=== PATIENT | female | born 1985 | race Caucasian/White ===

== ENCOUNTER 2017-05-04 18:09 | Observation (INO) | payer MEDICAID ==
[~2017-05-04] VITALS: Ht 162.6 cm; Wt 70.3 kg
[2017-05-04] MEDS ORDERED: DEXTROSE 5%-LACTATED RINGERS 1,000 ML IV SCH (18:30)
[2017-05-04 18:52] LABS: APPEARANCE,URINE Clear (CLEAR); BILIRUBIN,URINE Negative (NEGATIVE); COLOR,URINE Yellow (YELLOW); GLUCOSE, URINE (UA) Negative (NEGATIVE); KETONES,URINE >=160 mg/dL (NEGATIVE); LEUKOCYTE ESTERASE ,URINE Trace (NEGATIVE); NITRATE,URINE Negative (NEGATIVE); OCCULT BLOOD,URINE Negative (NEGATIVE); PROTEIN,URINE Negative (NEGATIVE)
[2017-05-04 19:11] LABS: BACTERIA,URINE Rare /HPF (None Seen); RBC,URINE None Seen /HPF (0-1); SQUAMOUS EPITHELIAL CELL,UR 0-2 /LPF (0-2); WBC,URINE None Seen /HPF (0-1)
[2017-05-04] MEDS ORDERED: CEFTRIAXONE 1GM/D5W 50ML 50 ML IV STA (19:27)
[2017-05-04] MEDS ORDERED: CEFTRIAXONE SODIUM 1 GM IVP SCH (20:00)
== END 2017-05-04 23:25 | disposition home or self-care (01) ==
LOC: LDH 18:09
DX: O21.2 Late vomiting of pregnancy (principal); Z87.891 Personal history of nicotine dependence; Z3A.30 30 weeks gestation of pregnancy
CPT/HCPCS: 81001; 96361 ×2; 96374; G0378 ×6; J0696; 96360

== ENCOUNTER 2017-06-28 22:45 | Inpatient (IN) | payer MEDICAID ==
[~2017-06-28] VITALS: Ht 162.6 cm; Wt 74.4 kg
[2017-06-28] MEDS ORDERED: PREN-196 PO (22:58)
[2017-06-28 23:18] LABS: APPEARANCE,URINE Clear (CLEAR); BILIRUBIN,URINE Negative (NEGATIVE); COLOR,URINE Yellow (YELLOW); GLUCOSE, URINE (UA) Negative (NEGATIVE); KETONES,URINE Negative (NEGATIVE); LEUKOCYTE ESTERASE ,URINE Negative (NEGATIVE); NITRATE,URINE Negative (NEGATIVE); OCCULT BLOOD,URINE Negative (NEGATIVE); PH,URINE 7.5 (5.0-8.0); PROTEIN,URINE Negative (NEGATIVE)
[2017-06-28] MEDS ORDERED: EPHEDRINE SULFATE 50 MG/ML AMPULE IVP PRN (23:45)
[2017-06-28] MEDS ORDERED: NALOXONE HCL 0.4 MG/1 ML ML IV PRN (23:45)
[2017-06-28] MEDS ORDERED: LACTATED RINGERS 500 ML 500 ML IV PRN (23:45)
[2017-06-28] MEDS ORDERED: ROPIVACAINE 0.2%200ML EPIDURAL 200 ML EP SCH (23:45)
[2017-06-28 23:47] LABS: AMPHET/METH SCREEN,URINE NEGATIVE (NEGATIVE); BARBITURATE SCREEN, URINE NEGATIVE (NEGATIVE); BENZODIAZEPINES SCREEN,URINE NEGATIVE (NEGATIVE); CANNABINOID SCREEN,URINE POSITIVE (NEGATIVE); COCAINE SCREEN,URINE NEGATIVE (NEGATIVE); OPIATE SCREEN,URINE NEGATIVE (NEGATIVE); PHENCYCLIDINE SCREEN,URINE NEGATIVE (NEGATIVE)
[2017-06-29 00:10] LABS: HEMATOCRIT 30.1 % (36-48); MEAN CORPUSCULAR HEMOGLOBIN 29.9 pg (27.0-33.0); MEAN CORPUSCULAR HGB CONC 34.8 g/dL (32.0-36.0); PLATELET COUNT (AUTO) 208 K/uL (130-400); RED CELL DISTRIBUTION WIDTH 13.8 % (11.0-15.5); WHITE BLOOD COUNT (AUTO) 10.6 K/uL (4.8-10.8)
[2017-06-29] MEDS: LACTATED RINGERS 1000ML 1,000 ML IV PRN ×3 (00:23→01:45)
[2017-06-29] MEDS ORDERED: ROPIVACAINE 0.2%200ML EPIDURAL 200 ML EP SCH (06:30)
[2017-06-29] MEDS ORDERED: EPHEDRINE SULFATE 50 MG/ML AMPULE IVP PRN (06:30)
[2017-06-29] MEDS ORDERED: NALOXONE HCL 0.4 MG/1 ML ML IVP PRN ×2 (06:30)
[2017-06-29] MEDS ORDERED: ONDANSETRON HCL 4 MG/2 ML 8 MG in SODIUM CHLORIDE 0.9% 50 ML IVP NR (06:30)
[2017-06-29] MEDS ORDERED: HYDROCODONE/ACETAMINOPHEN 5/325 MG TAB PO PRN ×2 (06:30)
[2017-06-29] MEDS ORDERED: MORPHINE SULFATE 2 MG/ML 1ML SYG IVP PRN (06:30)
[2017-06-29] MEDS ORDERED: ONDANSETRON HCL 4 MG/2 ML VIAL IVP PRN ×2 (06:30)
[2017-06-29] MEDS ORDERED: PROMETHAZINE HCL 25 MG/ML 1ML AMPULE IM PRN (06:30)
[2017-06-29] MEDS ORDERED: DiphenhydrAMINE HCL 50 MG/ML VIAL IVP PRN (06:30)
[2017-06-29] MEDS ORDERED: METOCLOPRAMIDE 10 MG/2 ML VIAL IVP PRN (06:30)
[2017-06-29] MEDS ORDERED: LACTATED RINGERS 1000ML 1,000 ML IV ONE (06:37)
[2017-06-29] MEDS ORDERED: OXYTOCIN 10 USP UNITS/ML ONE ×2 (06:37→14:30)
[2017-06-29] MEDS ORDERED: OXYTOCIN 10 USP UNITS/ML 20 UNIT in LACTATED RINGERS 1000ML 1,000 ML IV SCH (07:00)
[2017-06-29] MEDS ORDERED: LIDOCAINE HCL 1% 20 ML VIAL ONE (10:51)
[2017-06-29] MEDS ORDERED: WITCH HAZEL 1 PAD TP PRN (12:00)
[2017-06-29] MEDS ORDERED: ACETAMINOPHEN-CODEINE 300/30MG TAB PO PRN (12:00)
[2017-06-29] MEDS ORDERED: OXYTOCIN-LR 20 UNITS/1000 ML 1,000 ML IV SCH (12:00)
[2017-06-29] MEDS ORDERED: LANOLIN 30GM OINTMENT TP PRN (12:00)
[2017-06-29] MEDS ORDERED: DIPH,PERTUSS(ACELL),TET VAC/PF 0.5 ML VIAL IM PRN (12:00)
[2017-06-29] MEDS ORDERED: MEASLES/MUMPS/RUBELLA VACCINE, LIVE 0.5 ML/VIAL SQ PRN (12:00)
[2017-06-29] MEDS ORDERED: BENZOCAINE/LANOLIN/ALOE VERA 60 ML AEROSOL TP PRN (12:00)
[2017-06-29] MEDS ORDERED: IBUPROFEN 600 MG TABLET ONE (13:06)
[2017-06-29 14:50] VITALS: BP 123/72
[2017-06-29 17:06] VITALS: BP 129/76
[2017-06-29 19:48] VITALS: BP 117/68
[2017-06-29] MEDS: IBUPROFEN 800 MG TAB PO PRN (21:09)
[2017-06-29] MEDS: DOCUSATE SODIUM 100 MG CAP PO SCH (21:09)
[2017-06-29 22:57] VITALS: BP 117/60
[2017-06-30 03:04] VITALS: BP 98/68
[2017-06-30] MEDS: IBUPROFEN 800 MG TAB PO PRN ×2 (06:24→15:16)
[2017-06-30 07:24] LABS: HEPATITIS Bs ANTIGEN SCREEN P Negative (Negative)
[2017-06-30 07:47] VITALS: BP 114/72
[2017-06-30] MEDS: DOCUSATE SODIUM 100 MG CAP PO SCH (09:48)
[2017-06-30 11:19] VITALS: BP 106/67
[2017-06-30] MEDS ORDERED: MEASLES/MUMPS/RUBELLA VACCINE, LIVE 0.5 ML/VIAL SQ ONE (15:10)
== END 2017-06-30 16:00 | disposition home or self-care (01) | DRG 560 ==
LOC: EDH 22:45 → LDH 22:46 → OBSVTOIN 23:38 → WSH 06-29 14:50
PROC: 10907ZC Drainage of Amniotic Fluid, Therapeutic from Products of Conception, Via Natural or Artificial Opening (ICD-10-PCS; principal; 2017-06-29)
PROC: 10E0XZZ Delivery of Products of Conception, External Approach (ICD-10-PCS; 2017-06-29)
PROC: 3E033VJ Introduction of Other Hormone into Peripheral Vein, Percutaneous Approach (ICD-10-PCS; 2017-06-29)
PROC: 3E0R3BZ Introduction of Anesthetic Agent into Spinal Canal, Percutaneous Approach (ICD-10-PCS; 2017-06-29)
PROC: 00HU33Z Insertion of Infusion Device into Spinal Canal, Percutaneous Approach (ICD-10-PCS; 2017-06-29)
PROC: 3E0234Z Introduction of Serum, Toxoid and Vaccine into Muscle, Percutaneous Approach (ICD-10-PCS; 2017-06-29)
PROC: 3E0134Z Introduction of Serum, Toxoid and Vaccine into Subcutaneous Tissue, Percutaneous Approach (ICD-10-PCS; 2017-06-29)
DX: O69.81X0 Labor and delivery complicated by cord around neck, without compression, not applicable or unspecified (principal); Z23 Encounter for immunization; Z37.0 Single live birth; Z3A.38 38 weeks gestation of pregnancy
CPT/HCPCS: 36415; 80305; 81003; 85027; 86592; 86850; 86900; 86901; 87340; 90707; A4314; J2590; J7120

== ENCOUNTER 2017-08-15 06:56 | Day surgery (SDC) | payer MEDICAID ==
[2017-08-14 12:04] VITALS: BP 106/65
[2017-08-14 12:04] LABS: EOSINOPHILS % (AUTO) 1.2 % (0.0-8.0); HEMATOCRIT 41.1 % (36-48); MEAN CORPUSCULAR HEMOGLOBIN 28.4 pg (27.0-33.0); MEAN CORPUSCULAR HGB CONC 33.3 g/dL (32.0-36.0); MEAN CORPUSCULAR VOLUME 85.3 fL (79-99); MONOCYTES % (AUTO) 7.4 % (3.0-13.0); NEUTROPHILS % (AUTO) 65.4 % (40.0-77.0); PLATELET COUNT (AUTO) 308 K/uL (130-400); RED BLOOD CELL COUNT(AUTO) 4.83 MIL/uL (4.00-5.50); RED CELL DISTRIBUTION WIDTH 14.2 % (11.0-15.5); WHITE BLOOD COUNT (AUTO) 7.2 K/uL (4.8-10.8)
[~2017-08-15] VITALS: Ht 162.6 cm; Wt 64.7 kg
[2017-08-15] VITALS (18 sets, daily range): BP systolic 103–143; BP diastolic 54–80
[2017-08-15] MEDS ORDERED: CALDOLOR 800MG+NS 250ML 250 ML IV ONE (08:00)
[2017-08-15] MEDS ORDERED: LACTATED RINGERS 1000ML 1,000 ML IV SCH (08:00)
[2017-08-15] MEDS ORDERED: LIDOCAINE PF 2% 5ML ABBOJECT ONE (08:10)
[2017-08-15] MEDS ORDERED: DEXAMETHASONE SOD PHOSPHATE 10MG/ML 1ML VIAL ONE (08:10)
[2017-08-15] MEDS ORDERED: GLYCOPYRROLATE 0.2 MG/ML 5 ML VIAL ONE (08:10)
[2017-08-15] MEDS ORDERED: FENTANYL CITRATE PF 50 MCG/1 ML 2ML VIAL ONE (08:11)
[2017-08-15] MEDS ORDERED: PROPOFOL 10 MG/ML 20ML VIAL IV ONE (08:11)
[2017-08-15] MEDS ORDERED: MIDAZOLAM HCL 1 MG/ML 2ML VIAL ONE (08:11)
[2017-08-15] MEDS ORDERED: ROCURONIUM BROMIDE 10MG/1ML 5ML VL ONE (08:17)
[2017-08-15] MEDS ORDERED: BUPIVACAINE/PF 0.25% 30ML VIAL IJ ONE (08:50)
[2017-08-15] MEDS ORDERED: OCTYL 2-CYANOACRYLATE 1 EACH TP ONE (08:58)
[2017-08-15] MEDS ORDERED: MEPERIDINE-PF 25 MG/ML SYG ONE ×2 (09:28→09:37)
== END 2017-08-15 11:30 | disposition home or self-care (01) ==
LOC: DAH 06:56
DX: Z30.2 Encounter for sterilization (principal); Z79.899 Other long term (current) drug therapy
CPT/HCPCS: 36415; 58670; 84703; 85025; A4215; A4351; A4510; A4600; C1769 ×2; J1100; J1741; J2001; J2175 ×2; J2250; J2704; J3010; J3490 ×3; J7040; J7120